=== PATIENT | female | born 1985 | race Caucasian/White ===

== ENCOUNTER → 2016-05-31 | Outpatient (CLI) | payer OTHER ==
[~2016-05-31] MED LIST: LEVO100T7 PO; LEVO50TA6 PO
[2016-05-31 11:02] LABS: THYROID STIMULATING HORMONE 1.7 uIu/ml (0.300-4.500)
== END | disposition home or self-care (01) ==
LOC: C.LAB1850 09:14
PROVIDERS: ATTEND Internal Medicine Endocrinology, Diabetes & Metabolism
DX: E03.9 Hypothyroidism, unspecified (principal)

== ENCOUNTER → 2016-08-18 | Outpatient (CLI) | payer OTHER ==
--- NOTE | 2016-08-18 11:32 | DIAGNOSTIC IMAGING REPORT ---
HYSTEROSALPINGOGRAM HISTORY: Infertility. FLUOROSCOPY TIME: 0.4 minutes. 2 images. TECHNIQUE: The cervix was cannulated by the measurement department chief clerk-wildlife biology internship and water soluble contrast was instilled into the uterus under fluoroscopic guidance. Multiple spot images were obtained. FINDINGS: The uterine cavity is normal in size, shape, and position. The fallopian tubes are patent and there is free peritoneal spill on the right. No definite left-sided intraperitoneal spill of contrast. This is likely due to the preferential flow on the right. However, the left fallopian tube appears to be normal.. IMPRESSION: Essentially normal hysterosalpingogram. No definite left-sided intraperitoneal spill of contrast which is likely due to preferential flow of contrast to the right. The patient was unable to tolerate additional contrast injection. The fallopian tubes are normal. Electronically signed by: Marcus Marie M.D. 08/18/2016 11:30 AM Dictated Date/Time: 08/18/2016 11:29 AM
--- NOTE | 2016-08-18 19:28 | OPERATIVE REPORT ---
DATE OF OPERATION: 08/18/2016 Stormy presented for hystersalpingogram. She is a patient of Dr. Issa for primary infertility. PREOPERATIVE DIAGNOSIS: Primary infertility. POSTOPERATIVE DIAGNOSIS: Primary infertility. PROCEDURE: Hysterosalpingogram. SURGEON: Dr. Metcalf. RADIOLOGY: Dr. Marie. ESTIMATED BLOOD LOSS: Zero. SPECIMENS: None. ANESTHETICS: None. FINDINGS: Normal uterus, patent right fallopian tube, no abnormalities seen on the left tube, but no spill from the left tube. DESCRIPTION OF PROCEDURE: The procedure was discussed. The patient was placed in lithotomy position. A Graves' speculum placed in the vagina. Cervix was cleaned with Betadine. Cervix was somewhat off to the patient's right vaginal side but was visualized, grasped with a single tooth tenaculum and then acorn injecting device with the radiopaque dye was attached to her cervix. Patient was then positioned. Dye was injected. The uterus appeared normal. There was spill on the right fallopian tube noticed instantly. The left tube appeared normal, but there was not spill. Due to the patient having discomfort with the procedure we procedure without further advancing dye. Instruments removed from the cervix and vagina. Bleeding was minimal at the end of procedure. I attest to the content of the Intraoperative Record and any orders documented therein. Any exceptio ns are noted below.
== END | disposition home or self-care (01) ==
LOC: C.RAD 10:09
PROVIDERS: ATTEND Obstetrics & Gynecology
DX: Z31.41 Encounter for fertility testing (principal)

== ENCOUNTER → 2016-09-21 | Outpatient (CLI) | payer OTHER ==
[2016-09-21 10:15] LABS: THYROID STIMULATING HORMONE 1.87 uIu/ml (0.300-4.500)
== END | disposition home or self-care (01) ==
LOC: C.LAB1850 08:05
PROVIDERS: ATTEND Physician Assistant
DX: E03.9 Hypothyroidism, unspecified (principal)

== ENCOUNTER → 2016-09-30 | Outpatient (CLI) | payer OTHER ==
[2016-09-30 14:07] LABS: URINE APPEARANCE CLEAR (CLEAR); URINE BILIRUBIN NEG (NEG); URINE COLOR YELLOW; URINE NITRITE NEG (NEG); URINE SPECIFIC GRAVITY 1.014 (1.000-1.030); UROBILINOGEN NEG (NEG)
[2016-09-30 14:22] LABS: MANUAL MICROSCOPIC REQUIRED? NO; REVIEW REQ? NO
== END | disposition home or self-care (01) ==
LOC: C.LABSPEC 13:26
PROVIDERS: ATTEND Obstetrics & Gynecology
DX: O09.01 Supervision of pregnancy with history of infertility, first trimester (principal); Z3A.00 Weeks of gestation of pregnancy not specified

== ENCOUNTER → 2016-10-11 | Outpatient (CLI) | payer OTHER ==
[2016-10-11 12:41] LABS: BASO % 0.6 %; BASO ABS # 0.04 K/uL (0-0.2); COMPLETE YES; HEMATOCRIT 38.3 % (37-47); IG% 0.4 %; LYMPH % 35.9 %; LYMPH ABS # 2.44 K/uL (1.2-3.4); MEAN CORPUSCULAR HEMOGLOBIN 30.6 pg (25-34); MEAN CORPUSCULAR HGB CONC 34.7 g/dl (32-36); MEAN PLATELET VOLUME 9.8 fL (7.4-10.4); MONO % 10.3 %; NEUT % 51.8 %; PLATELET COUNT 288 K/uL (130-400); RED BLOOD COUNT 4.35 M/uL (4.2-5.4); WHITE BLOOD COUNT 6.79 K/uL (4.8-10.8)
== END | disposition home or self-care (01) ==
LOC: C.LAB1850 09:45
PROVIDERS: ATTEND Obstetrics & Gynecology
DX: O09.01 Supervision of pregnancy with history of infertility, first trimester (principal)

== ENCOUNTER 2016-10-12 11:22 | Day surgery (SDC) | payer OTHER ==
[~2016-10-12] VITALS: Ht 149.9 cm; Wt 51.8 kg
[~2016-10-12 11:22] MED LIST changes: +DOXYCYCLINE HYCLATE 100 MG CAP PO SCH; +LACTATED RINGER'S 1000ML 1,000 ML IV SCH; -LEVO100T7 PO; -LEVO50TA6 PO; +PATIENT'S ALLERGY INFO NEEDS ENTERED SCH
[2016-10-12 11:34] VITALS: BP 87/57; PULSE 73; O2SAT 100; Ht 149.9 cm; Wt 51.8 kg
[2016-10-12] MEDS ORDERED: DEXAMETHASONE SOD INJ 4 MG/ML VIAL ONE ×2 (11:51→12:35)
[2016-10-12] MEDS ORDERED: LIDOCAINE HCL 2% 2 ML VIAL (20MG/ML) ONE (11:51)
[2016-10-12] MEDS ORDERED: PROPOFOL IV EMULSION 10 MG/ML 20 ML VIAL IV ONE (11:51)
[2016-10-12] MEDS ORDERED: ONDANSETRON INJ 2 MG/ML 2 ML VIAL ONE (11:51)
[2016-10-12] MEDS ORDERED: MIDAZOLAM HCL 1 MG/ML 2ML VIAL ONE (11:51)
[2016-10-12] MEDS ORDERED: FENTANYL CITRATE INJ 50 MCG/1 ML 2 ML VIAL ONE (11:52)
[2016-10-12] MEDS ORDERED: SODIUM CHLORIDE 0.9% 1000ML 1,000 ML IV SCH (11:58)
--- NOTE | 2016-10-12 11:58 | History & Physical Bridge Note ---
H&P Re-Evaluation Bridge Note: I have examined the patient, reviewed the History & Physical and in the interval since the performance of the History & Physical I have noted the following changes of clinical significance: No changes noted
--- NOTE | 2016-10-12 11:59 | Discharge Instructions ---
Discharge Instructions Date of Service Oct 12, 2016. Visit Reason for Visit: Missed Discharge Discharge Diagnosis / Problem: Dilation and evacuation for MAB Discharge Goals Goal(s): Specific goals Activity Recommendations Activity Limitations: per Instructions/Follow-up section Anesthesia . Post Anesthesia Instructions: If you have had General Anesthesia or IV Sedation: * Do not drive today. * Resume driving when surgeon permits. * Do not make important decisions or sign legal documents today. * Call surgeon for: 1. Temperature elevations greater than 101 degrees F. 2. Uncontrollable pain. 3. Excessive bleeding. 4. Persistent nausea and vomiting. 5. Medication intolerance (nausea, vomiting or rash). * For nausea and vomiting use only clear liquids such as: tea, soda, bouillon until nausea subsides, then gradually increase diet as tolerated. * If you have any concerns or questions, call your surgeon's office. If physician is unavailable and it is an emergency, call 911 or go to the nearest emergency room. . Instructions / Follow-Up Instructions / Follow-Up ACTIVITY RECOMMENDATIONS: * Avoid tampons, douching, hot tubs, pools, and intercourse until bleeding has stopped. * May shower as usual. * No strenuous activity for 24-48 hours. After 24-48 hours, you may do anything you feel like doing (driving and sports are okay). SPECIAL CARE INSTRUCTIONS: Special Diet: * Mild nausea may occur in the immediate post-operative period. * Take clear liquids such as tea, cola or bouillon until all nausea has subsided; you may then resume your normal diet. Special Care: * Light bleeding and vaginal spotting can last from a few days to 3-4 weeks. Call your doctor if bleeding becomes heavier than the heaviest part of your period. * Check your temperature twice a day for one week. If it goes above 100.4 degrees Fahrenheit (38.0 Celsius), notify your doctor. * Call your doctor's office for an appointment for 6 weeks after your surgery. FOLLOW-UP VISIT: Call your doctor's office for an appointment for 6 weeks after your surgery. Diet Recommendations Recommended Home Diet: resume previous diet Pending Studies Studies pending at discharge: no Medical Emergencies . Who to Call and When: Medical Emergencies: If at any time you feel your situation is an emergency, please call 911 immediately. . Non-Emergent Contact Non-Emergency issues call your: Primary Care Provider . . "Provider Documentation" section prepared by Daly Guzmán. .
[2016-10-12] MEDS ORDERED: OXYCODONE/ACETAMINOPHEN 5-325 TAB PO PRN ×2 (12:00)
[2016-10-12] MEDS ORDERED: KETOROLAC TROMETHAMINE 30 MG/ML VIAL IV. PRN ×2 (12:00→12:45)
[2016-10-12] MEDS ORDERED: ONDANSETRON INJ 2 MG/ML 2 ML VIAL IV PRN ×2 (12:00→12:45)
[2016-10-12] MEDS ORDERED: PROMETHAZINE HCL INJ 25 MG in SODIUM CHLORIDE 0.9% 50ML 50 ML IV PRN (12:00)
[2016-10-12] MEDS ORDERED: IBUPROFEN 600 MG TAB PO PRN (12:00)
[2016-10-12] MEDS ORDERED: LEVO100T7 PO (12:09)
[2016-10-12] MEDS ORDERED: LEVO50TA6 PO (12:09)
[2016-10-12] MEDS ORDERED: METOCLOPRAMIDE HCL INJ 5 MG/ML 2 ML VIAL ONE (12:35)
[2016-10-12] MEDS ORDERED: KETOROLAC TROMETHAMINE 30 MG/ML VIAL ONE (12:44)
[2016-10-12] MEDS ORDERED: FENTANYL CITRATE INJ 50 MCG/1 ML 2 ML VIAL IV PRN (12:45)
[2016-10-12] MEDS ORDERED: ATROPINE SULFATE 0.1 MG/ML 5ML SYR IV PRN (12:45)
[2016-10-12] MEDS ORDERED: PROMETHAZINE HCL INJ 12.5 MG in SODIUM CHLORIDE 0.9% 50ML 50 ML IV PRN (12:45)
--- NOTE | 2016-10-12 13:21 | Anesthesiology Progress Note ---
Anesthesia Post Op Note Date & Time Oct 12, 2016 at 13:20 Vital Signs Pain Intensity: 0 Vital Signs Past 12 Hours Date Time Temp Pulse Resp B/P (MAP) Pulse Ox O2 Delivery O2 Flow Rate FiO2 10/12/16 13:15 53 17 96/66 (73) 98 Room Air 10/12/16 13:05 56 19 88/53 (57) 100 Mask 10 10/12/16 12:55 55 19 92/67 (77) 100 Mask 10 10/12/16 12:49 36.3 60 16 98/58 100 Mask 10 10/12/16 11:34 73 18 87/57 (67) 100 Room Air Notes Mental Status: alert / awake / arousable, participated in evaluation Pt Amnestic to Procedure: Yes Nausea / Vomiting: adequately controlled Pain: adequately controlled Airway Patency, RR, SpO2: stable & adequate BP & HR: stable & adequate Hydration State: stable & adequate Anesthetic Complications: no major complications apparent
[2016-10-12] MEDS ORDERED: DOXYCYCLINE HYCLATE 100 MG CAP PO SCH (14:00)
[2016-10-12 14:05] VITALS: BP 95/50; PULSE 85; O2SAT 99
[2016-10-12 14:12] VITALS: BP 88/57; PULSE 56; TEMP 36.3; O2SAT 98
[2016-10-15] MEDS ORDERED: DOXYCYCLINE HYCLATE 100 MG CAP PO SCH (06:00)
[2016-10-15] MEDS ORDERED: LACTATED RINGER'S 1000ML 1,000 ML IV SCH (06:00)
--- NOTE | 2016-10-21 08:17 | OPERATIVE REPORT ---
DATE OF OPERATION: 10/12/2016 PREOPERATIVE DIAGNOSIS: Missed . POSTOPERATIVE DIAGNOSIS: Same. PROCEDURE: D&E. SURGEON: Dr. Guzmán. DENTAL BILLER: None. ESTIMATED BLOOD LOSS: 100 mL. FINDINGS: Uterus 12 cm at the beginning of procedure, 8 at the end, POC retrieved. SPECIMENS: POC. COMPLICATIONS: None. DISPOSITION: Stable to recovery room. OPERATION AND FINDINGS: DESCRIPTION: Stormy was placed on the table in the dorsal lithotomy position with candy-cane stirrups, prepped and draped in standard sterile fashion and a hard time-out was taken prior to proceeding. The bladder was catheterized for less than 100 mL of clear yellow urine. A weighted speculum was then introduced to the vagina and the anterior lip of the cervix was identified and grasped with a single-tooth tenaculum. The uterus was sounded to 12 cm and then the cervix was serially dilated to allow passage of an 8 mm suction curette. This was then introduced to the fundus, hoses were then attached and then suction was applied through 3 passes, material consistent with POC was retrieved. Once this was completed, the suction curette was removed and a brief sharp curettage was carried out on all liu to ensure good cry. One final suction pass was then made to retrieve any loose clot and debris. All instruments were then removed. Allis was briefly applied to the patient's left side tenaculum site for a little bit of bleeding. After about a minute this was removed and the area was hemostatic. All instruments having been removed the patient was then transferred to the recovery room in stable condition. I attest to the content of the Intraoperative Record and any orders documented therein. Any exception s are noted below.
== END 2016-10-12 14:40 | disposition home or self-care (01) ==
LOC: C.ACU 11:22
PROVIDERS: ATTEND Obstetrics & Gynecology
DX: O02.1 Missed abortion (principal); Z82.49 Family history of ischemic heart disease and other diseases of the circulatory system; Z80.3 Family history of malignant neoplasm of breast

== ENCOUNTER → 2016-11-02 | Outpatient (CLI) | payer OTHER ==
[~2016-11-02] MED LIST changes: -DOXYCYCLINE HYCLATE 100 MG CAP PO SCH; -LACTATED RINGER'S 1000ML 1,000 ML IV SCH; +LEVO100T7 PO; +LEVO50TA6 PO; -PATIENT'S ALLERGY INFO NEEDS ENTERED SCH
[2016-11-02 17:21] LABS: BASO % 0.6 %; BASO ABS # 0.04 K/uL (0-0.2); COMPLETE YES; EOS % 1.5 %; HEMATOCRIT 39.8 % (37-47); IG% 0.1 %; LYMPH % 42.2 %; LYMPH ABS # 3.03 K/uL (1.2-3.4); MEAN CELL VOLUME 88.4 fL (80-100); MEAN CORPUSCULAR HEMOGLOBIN 29.1 pg (25-34); MEAN CORPUSCULAR HGB CONC 32.9 g/dl (32-36); MEAN PLATELET VOLUME 9.6 fL (7.4-10.4); MONO % 6.5 %; NEUT % 49.1 %; PLATELET COUNT 319 K/uL (130-400); WHITE BLOOD COUNT 7.18 K/uL (4.8-10.8)
[2016-11-02 17:25] LABS: ALT/SGPT 20 U/L (12-78); BLOOD UREA NITROGEN 10 mg/dl (7-18); BUN/CREATININE RATIO 13.8 (10-20); CALCIUM 9.3 mg/dl (8.5-10.1); CARBON DIOXIDE 27 mmol/L (21-32); CHLORIDE 106 mmol/L (98-107); CREATININE 0.73 mg/dl (0.60-1.20); GLUCOSE 90 mg/dl (70-99); SODIUM 140 mmol/L (136-145)
[2016-11-02 17:36] LABS: ALB/GLOB RATIO 0.9 (0.9-2); ALKALINE PHOSPHATASE 41 U/L (45-117); AST/SGOT 15 U/L (15-37)
== END | disposition home or self-care (01) ==
LOC: C.LABBC 12:51
PROVIDERS: ATTEND Internal Medicine
DX: R79.9 Abnormal finding of blood chemistry, unspecified (principal); M79.1 Myalgia; R53.83 Other fatigue

== ENCOUNTER → 2016-12-28 | Outpatient (CLI) | payer OTHER ==
[2016-12-28 14:43] LABS: THYROID STIMULATING HORMONE 2.37 uIu/ml (0.300-4.500)
== END | disposition home or self-care (01) ==
LOC: C.LAB1850 12:40
PROVIDERS: ATTEND Obstetrics & Gynecology
DX: O09.299 Supervision of pregnancy with other poor reproductive or obstetric history, unspecified trimester (principal); O99.280 Endocrine, nutritional and metabolic diseases complicating pregnancy, unspecified trimester; E03.9 Hypothyroidism, unspecified

== ENCOUNTER → 2016-12-30 | Outpatient (CLI) | payer OTHER | END | disposition home or self-care (01) | LOC: C.LABBC 14:39 | PROVIDERS: ATTEND Obstetrics & Gynecology | DX: O09.299 Supervision of pregnancy with other poor reproductive or obstetric history, unspecified trimester (principal) ==

== ENCOUNTER → 2017-01-20 | Outpatient (CLI) | payer OTHER ==
[2017-01-20 16:12] LABS: URINE APPEARANCE CLEAR (CLEAR); URINE BILIRUBIN NEG (NEG); URINE COLOR YELLOW; URINE NITRITE NEG (NEG); URINE SPECIFIC GRAVITY 1.017 (1.000-1.030); UROBILINOGEN NEG (NEG)
[2017-01-20 16:18] LABS: MANUAL MICROSCOPIC REQUIRED? NO; REVIEW REQ? NO
[2017-01-20 16:25] LABS: BASO % 0.2 %; BASO ABS # 0.02 K/uL (0-0.2); COMPLETE YES; EOS % 0.4 %; HEMATOCRIT 37.8 % (37-47); IG% 0.3 %; LYMPH % 28.3 %; LYMPH ABS # 2.78 K/uL (1.2-3.4); MEAN CELL VOLUME 87.5 fL (80-100); MEAN CORPUSCULAR HEMOGLOBIN 30.1 pg (25-34); MEAN CORPUSCULAR HGB CONC 34.4 g/dl (32-36); MEAN PLATELET VOLUME 9.6 fL (7.4-10.4); NEUT % 61.8 %; PLATELET COUNT 307 K/uL (130-400); RED BLOOD COUNT 4.32 M/uL (4.2-5.4); WHITE BLOOD COUNT 9.83 K/uL (4.8-10.8)
[2017-01-24 08:43] LABS: CHLAMYDIA TRACH RNA*** NOT DETECTED (NOT DETECTED); GC (NEIS GONORRHOEAE)RNA** NOT DETECTED (NOT DETECTED)
== END | disposition home or self-care (01) ==
LOC: C.LAB1850 14:55
PROVIDERS: ATTEND Obstetrics & Gynecology
DX: O09.01 Supervision of pregnancy with history of infertility, first trimester (principal); Z3A.00 Weeks of gestation of pregnancy not specified

== ENCOUNTER → 2017-02-15 | Outpatient (CLI) | payer OTHER ==
[2017-02-15 15:57] LABS: THYROID STIMULATING HORMONE 1.06 uIu/ml (0.300-4.500)
== END | disposition home or self-care (01) ==
LOC: C.LAB1850 13:47
PROVIDERS: ATTEND Obstetrics & Gynecology
DX: O99.280 Endocrine, nutritional and metabolic diseases complicating pregnancy, unspecified trimester (principal)

== ENCOUNTER → 2017-03-29 | Outpatient (CLI) | payer OTHER ==
[2017-03-29 18:00] LABS: THYROID STIMULATING HORMONE 1.38 uIu/ml (0.300-4.500)
[2017-03-29 18:03] LABS: GTGD 50 Grams
[2017-04-01 13:59] LABS: AFP CONCENTRATION 44.6 NG/ML; AFP MULTIPLE OF MEDIAN 1.01; AFPTS INSULIN DEP DIABETIC? NO; AFPTS MATERNAL WT 117 LBS; ALPHA-FETOPROTEIN RACE OTHER=O; CIGARETTE SMOKER? NOT PROVIDED; EDD DETERMINED BY ULTRASOUND; HISTORY OF NTD NO; REPEAT SAMPLE? NO
== END | disposition home or self-care (01) ==
LOC: C.LAB1850 16:08
PROVIDERS: ATTEND Obstetrics & Gynecology
DX: E55.9 Vitamin D deficiency, unspecified (principal); O99.280 Endocrine, nutritional and metabolic diseases complicating pregnancy, unspecified trimester; Z3A.00 Weeks of gestation of pregnancy not specified; O09.02 Supervision of pregnancy with history of infertility, second trimester

== ENCOUNTER → 2017-04-26 | Outpatient (CLI) | payer OTHER ==
[2017-04-26 17:12] LABS: THYROID STIMULATING HORMONE 1.48 uIu/ml (0.300-4.500)
== END | disposition home or self-care (01) ==
LOC: C.LAB1850 15:47
PROVIDERS: ATTEND Internal Medicine Endocrinology, Diabetes & Metabolism
DX: O99.280 Endocrine, nutritional and metabolic diseases complicating pregnancy, unspecified trimester (principal)

== ENCOUNTER → 2017-06-16 | Outpatient (CLI) | payer OTHER | END | disposition home or self-care (01) | LOC: C.LABSPEC 18:00 | PROVIDERS: ATTEND Obstetrics & Gynecology | DX: O09.03 Supervision of pregnancy with history of infertility, third trimester (principal); Z3A.00 Weeks of gestation of pregnancy not specified ==

== ENCOUNTER → 2017-06-21 | Outpatient (CLI) | payer OTHER ==
[2017-06-21 14:39] LABS: HEMATOCRIT 34.5 % (37-47); HEMOGLOBIN 11.7 g/dL (12.0-16.0)
== END | disposition home or self-care (01) ==
LOC: C.LAB1850 11:31
PROVIDERS: ATTEND Obstetrics & Gynecology
DX: O09.03 Supervision of pregnancy with history of infertility, third trimester (principal); Z3A.00 Weeks of gestation of pregnancy not specified

== ENCOUNTER → 2017-07-14 | Outpatient (CLI) | payer OTHER | END | disposition home or self-care (01) | LOC: C.LAB1850 16:57 | PROVIDERS: ATTEND Internal Medicine Endocrinology, Diabetes & Metabolism | DX: E55.9 Vitamin D deficiency, unspecified (principal) ==

== ENCOUNTER → 2017-08-11 | Outpatient (CLI) | payer OTHER | END | disposition home or self-care (01) | LOC: C.LABSPEC 17:45 | PROVIDERS: ATTEND Obstetrics & Gynecology | DX: O09.03 Supervision of pregnancy with history of infertility, third trimester (principal); Z3A.00 Weeks of gestation of pregnancy not specified ==

== ENCOUNTER 2017-09-01 17:07 | Outpatient (CLI) | payer OTHER ==
[2017-09-08] MEDS ORDERED: MTR600X PO (06:49)
[2017-09-08] MEDS ORDERED: OXYC-57 PO (06:49)
--- NOTE | 2017-09-08 10:09 | EDITING REQUIRED CODING QUERY ---
DIAGNOSIS NEEDED To promote full compliance with coding requirements relating to patient care, physician participation is requested in all cases of inbound ingredient logistics specialist uncertainty. Please assist us with the question(s) below: Coding Question: The patient received care in labor and delivery on 09/02/17 as noted within the record. Please document the diagnosis that is being addressed by the medication/treatment. Provider Response: DIAGNOSIS: Labor check 40 weeks WEEKS OF GESTATION: Thank you for your assistance, Scarlett Sun - Remote Mortgage Underwriter
== END 2017-09-01 17:47 | disposition home or self-care (01) ==
LOC: C.LD 17:07 → C.OPB 17:07
PROVIDERS: ATTEND Obstetrics & Gynecology
DX: Z34.83 Encounter for supervision of other normal pregnancy, third trimester (principal)

== ENCOUNTER 2017-09-04 23:54 | Inpatient (IN) | payer OTHER ==
[~2017-09-04] VITALS: Ht 149.9 cm; Wt 67.0 kg
[2017-09-05] VITALS (18 sets, daily range): BP systolic 102–110; BP diastolic 65–71; PULSE 78–101; TEMP 36.6–36.9; O2SAT 94–100; Ht 149.9 cm; Wt 67.0 kg
[2017-09-05] MEDS ORDERED: PRENTAB26 PO (00:17)
[2017-09-05] MEDS ORDERED: LACTATED RINGER'S 1000ML 1,000 ML IV SCH (03:39)
[2017-09-05] MEDS ORDERED: BUTORPHANOL TARTRATE 1 MG/ML VIAL ONE (04:06)
[2017-09-05 04:12] LABS: HEMATOCRIT 35.3 % (37-47); HEMOGLOBIN 12.5 g/dL (12.0-16.0); MEAN CELL VOLUME 88.9 fL (80-100); MEAN CORPUSCULAR HEMOGLOBIN 31.5 pg (25-34); MEAN PLATELET VOLUME 9.6 fL (7.4-10.4); PLATELET COUNT 217 K/uL (130-400); RED CELL DISTRIBUTION WIDTH CV 13.4 % (11.5-14.5); WHITE BLOOD COUNT 16.09 K/uL (4.8-10.8)
[2017-09-05 04:13] LABS: MEAN CORPUSCULAR HGB CONC 35.4 g/dl (32-36)
[2017-09-05] MEDS ORDERED: BUTORPHANOL TARTRATE 1 MG/ML VIAL IV PRN (04:15)
[2017-09-05] MEDS ORDERED: BUPIVACAINE 0.25% 30 ML VIAL ONE (04:18)
[2017-09-05] MEDS ORDERED: EpHEDrine SULFATE INJ 50 MG/ML AMP ONE (04:18)
[2017-09-05] MEDS ORDERED: FENTANYL CITRATE INJ 50 MCG/1 ML 2 ML VIAL ONE (04:18)
[2017-09-05] MEDS ORDERED: FENTANYL 2MCG/ML ROPIV 1.25MG/ML 100ML BAG ONE (04:19)
[2017-09-05] MEDS ORDERED: NALOXONE HCL INJ 1 MG in SODIUM CHLORIDE 0.9% 1000ML 1,000 ML IV PRN ×2 (04:58→06:29)
[2017-09-05] MEDS ORDERED: LACTATED RINGER'S 1000ML 500 ML IV PRN ×2 (04:58→06:29)
[2017-09-05] MEDS ORDERED: EpHEDrine SULFATE INJ 50 MG/ML AMP IV PRN ×2 (05:00→06:30)
[2017-09-05] MEDS ORDERED: NALBUPHINE HCL INJ 10 MG/ML AMP IV PRN ×2 (05:00→06:30)
[2017-09-05] MEDS ORDERED: DiphenhydrAMINE HCL 50 MG/ML VIAL IV PRN ×3 (05:00→23:50)
[2017-09-05] MEDS ORDERED: NALOXONE HCL INJ 0.4 MG/1 ML VIAL/CARP IV PRN (05:00)
[2017-09-05] MEDS ORDERED: FENTANYL 2MCG/ML ROPIV 1.25MG/ML 100ML BAG EPI PRN (05:00)
[2017-09-05] MEDS ORDERED: ONDANSETRON INJ 2 MG/ML 2 ML VIAL IV PRN ×3 (05:00→23:50)
[2017-09-05] MEDS: LACTATED RINGER'S 1000ML 1,000 ML IV SCH ×2 (05:06→17:20)
[2017-09-05] MEDS ORDERED: LIDOCAINE/EPINEPHRINE 2% 1:200,000 20 ML SDV ONE (05:39)
[2017-09-05] MEDS ORDERED: ONDANSETRON INJ 2 MG/ML 2 ML VIAL ONE (05:39)
[2017-09-05] MEDS ORDERED: OXYTOCIN INJ 10 UNITS/ML VIAL ONE ×3 (05:40→05:47)
[2017-09-05] MEDS ORDERED: PHENYLEPHRINE HCL INJ 10 MG/ML VIAL ONE (05:40)
[2017-09-05] MEDS ORDERED: MoRPHine SULFATE PF 1 MG/ML 10 ML AMP/VIAL ONE (05:44)
--- NOTE | 2017-09-05 06:02 | [facility] Post Operative Brief Note ---
Immediate Operative Summary Operative Date Sep 05, 2017. Pre-Operative Diagnosis 1. 39 week intrauterine 2. early labor 3. bradycardia Post-Operative Diagnosis same Procedure(s) Performed Stat Primary LTCS Surgeon Chris Corn Husk Baler Surgeon(s) RN Estimated Blood Loss 500 Findings See Below (viable male apgars 8,9. normal uterus, tubes and ovaries bilaterally. baby with nuchal cord and body cord. ) see below Fluids (cc crystalloids) 1500 Specimens placenta, cord gases Drains patel Anesthesia Type L&D Only EPID Exist Complication(s) none Disposition Accompanied Pt To Recover: no Disposition: L&D
[2017-09-05] MEDS ORDERED: LANOLIN OINT EXT PRN (06:15)
[2017-09-05] MEDS ORDERED: SUPERCREAM 0.870 % 15GM JAR EXT PRN (06:15)
[2017-09-05] MEDS ORDERED: HYDROCORTISONE ACETATE 25 MG SUPP PR PRN (06:15)
[2017-09-05] MEDS ORDERED: BENZOCAINE 20% AER SPR 82.5 GM CAN EXT PRN (06:15)
[2017-09-05] MEDS ORDERED: DIPHTHERIA/TETANUS/PERTUSSIS 0.5 ML SYR/VIAL IM. ONE (06:15)
--- NOTE | 2017-09-05 06:26 | Anesthesia Procedure Note ---
Anesthesia Epidural Removal Nt Date & Time Sep 05, 2017 at 06:25 Vital Signs Pain Intensity: 0.0 Notes Mental Status: alert / awake / arousable, participated in evaluation Nausea / Vomiting: adequately controlled Pain: adequately controlled Airway Patency, RR, SpO2: stable & adequate BP & HR: stable & adequate Hydration State: stable & adequate Neuraxial Anesthesia: was administered, sensory block is resolving Anesthetic Complications: no major complications apparent, pt satisfied with anesthetic care Epidural: removed without complications, with tip intact
--- NOTE | 2017-09-05 06:26 | Anesthesiology Progress Note ---
Anesthesia Post Op Note Date & Time Sep 05, 2017 at 06:26 Vital Signs Pain Intensity: 0.0 Notes Mental Status: alert / awake / arousable, participated in evaluation Pt Amnestic to Procedure: Yes Nausea / Vomiting: adequately controlled Pain: adequately controlled Airway Patency, RR, SpO2: stable & adequate BP & HR: stable & adequate Hydration State: stable & adequate Neuraxial Anesthesia: was administered, sensory block is resolving Anesthetic Complications: no major complications apparent
[2017-09-05] MEDS ORDERED: SODIUM CHLORIDE 0.9% 1000ML 1,000 ML IV PRN (06:29)
[2017-09-05] MEDS ORDERED: NALOXONE HCL INJ 0.08 MG in SYRINGE 1.8 ML IV PRN (06:29)
[2017-09-05] MEDS ORDERED: NALOXONE HCL 0.4 MG/1 ML VIAL/CARP IV PRN (06:30)
[2017-09-05] MEDS ORDERED: MoRPHine SULFATE PF 1 MG/ML 10 ML AMP/VIAL EPI PRN (06:30)
[2017-09-05] MEDS ORDERED: MoRPHine SULFATE 2 MG/ML CARP IV PRN (06:30)
[2017-09-05] MEDS ORDERED: NO NARCOTICS OR SEDATIVES SCH (06:30)
[2017-09-05] MEDS ORDERED: TERBUTALINE SULFATE 1 MG/ML VIAL SQ ONE (06:45)
[2017-09-05] MEDS ORDERED: CARBOPROST TROMETHAMINE 250 MCG/ML AMP IM ONE (06:45)
[2017-09-05] MEDS ORDERED: CEFAZOLIN IV 2,000 MG in DEXTROSE 5% 50ML 50 ML IV SCH (06:45)
--- NOTE | 2017-09-05 06:46 | DIAGNOSTIC IMAGING REPORT ---
KUB HISTORY: Acute pelvic pain status post STAT ; NO COUNT COMPARISON: None. FINDINGS: The bowel gas pattern is non-obstructive. A single wire is noted projected over the lumbar spine coiled at the level of L4. There is no organomegaly. No renal calculi. No ureteral calculi. No gross pneumoperitoneum identified on this supine view. No definite retained foreign body identified. No pneumatosis.. No fracture. IMPRESSION: Nonobstructive bowel gas pattern. Electronically signed by: Jim Sylvester M.D. 09/05/2017 6:44 AM Dictated Date/Time: 09/05/2017 6:42 AM
[2017-09-05] MEDS ORDERED: OXYTOCIN INJ 20 UNITS in LACTATED RINGER'S 1000ML 1,000 ML IV SCH (07:00)
--- NOTE | 2017-09-05 07:34 | OPERATIVE REPORT ---
DATE OF OPERATION: 09/05/2017 PREOPERATIVE DIAGNOSES: 1. A 39+ week intrauterine . 2. Early labor. 3. bradycardia. 4. Meconium-stained amniotic fluid. POSTOPERATIVE DIAGNOSES: Same. PROCEDURE: Stat low-transverse section. SURGEON: Dr. Ghazal Perez. CARDIAC CATHETERIZATION TECHNICIAN: RN. IV FLUIDS: 1500 mL. ESTIMATED BLOOD LOSS: 500 mL. URINE OUTPUT: 350 mL. ANESTHESIA: Epidural with Duramorph, local 2% lidocaine. INDICATIONS: A 31-year-old 2, para 0-0-1-0 at 39-6/7 weeks who presented to labor and delivery with early labor. She ultimately dilated to 3-4 cm and was admitted. She received an epidural and subsequently her water broke with evidence of thick meconium-stained fluid. Shortly thereafter, this was followed by an episode of bradycardia for at least 16 minutes that was traced. She had IV fluid bolusing, oxygen, and position change without recovery. Decision was made to proceed with stat section. Her vaginal exam was 5 cm. FINDINGS: Viable male infant, Apgars 8 and 9. Cord gases obtained. Placenta sent for pathology. Normal uterus, tubes and ovaries bilaterally. with nuchal and body cord. DESCRIPTION OF PROCEDURE: scalp electrode had been placed in the room. It was quickly removed. The patient was placed supine on the table. There was no time for adequate prep and Betadine was poured. She was rapidly draped. Her anesthesia level from her recent epidural was inadequate due to her sensation of pricking at the site of the planned incision. For that reason, 2% local lidocaine was injected along the planned site of the incision. The knife was then used to create a Pfannenstiel skin incision that was then carried down to the underlying layer of fascia. The fascia had been nicked in the midline. It was extended manually. The rectus muscles were dissected off of the fascia bluntly. The peritoneal cavity was bluntly entered into. This opening was stretched. The bladder blade was placed. The knife was used to create a hysterotomy that was then stretched. The feather drying machine operator's hand was placed through the hysterotomy and the head was elevated. The bladder blade was removed. With fundal pressure, the cephalic was delivered. The shoulders and body were then rapidly delivered with further fundal pressure. A nuchal cord as well as a body cord had been noted. The immediately cried. The nose and mouth were bulb suctioned. The cord was clamped and cut, and the was handed off to the awaiting nursing staff. Cord gases were obtained. Placenta was manually expressed. The uterus was exteriorized and cleared of all clots and debris. The uterus was boggy despite IV Pitocin, and therefore, after the blood pressure was checked, IM Hemabate 0.25 mg was administered on the field into the uterine muscle. The hysterotomy was closed in a running locking fashion using 0 Vicryl. A second imbricating layer of 0 Vicryl was placed for excellent hemostasis. The uterine tone was improving. The pelvis was irrigated. The uterus was returned to the abdomen. The gutters were cleared of all clots and debris. Hysterotomy was reinspected and noted to be hemostatic. The fascia was reapproximated in a running fashion using 0 Vicryl. The subcutaneous tissue was copiously irrigated. It was reapproximated using 3-0 chromic. The skin was then closed in a subcuticular fashion using 4-0 Vicryl. There had been no sponge, lap or needle count, and therefore, an x-ray was performed with the preliminary findings of no retained sponges or sutures. The patient was transferred to the labor and delivery recovery room. I attest to the content of the Intraoperative Record and any orders documented therein. Any exceptions are noted below. [facility]
--- NOTE | 2017-09-05 07:51 | Discharge Instructions ---
Discharge Instructions Date of Service Sep 05, 2017. Admission Reason for Admission: LABOR Discharge Discharge Diagnosis / Problem: Discharge Goals Goal(s): Routine recovery after Medications Continue Dispensed Medications: supercream, dermaplast, tucks, lansinoh Activity Recommendations Activity Limitations: per Instructions/Follow-up section . Instructions / Follow-Up Instructions / Follow-Up ACTIVITY RECOMMENDATIONS: * Gradual return to full activity over the next 2-3 weeks. * No lifting - nothing heavier than baby over the next 2-3 weeks. * Do not engage in vigorous exercise, sexual activity or sports until cleared by your physician. * Do not drive or operate any motorized equipment until cleared by your physician. * You may shower/bathe daily. MEDICATIONS: For discomfort or pain, you may use Acetaminophen (Tylenol), Ibuprofen (Advil), or Naproxen (Aleve) following the package directions. For constipation you may use Colace following the package directions. BREAST CARE: If you are not breast feeding: * Wear a supportive bra 24 hours a day for one to two weeks. * Avoid stimulating your breasts and nipples as much as possible during the first few weeks after delivery. * When taking a shower, have the warm water hit your back, not breasts. * When your breasts feel full, apply ice packs. Usually three to four times a day helps ease the discomfort. * Take a mild pain medication (Tylenol / Motrin) when you are uncomfortable. If breast feeding: * Use breast milk to lubricate nipples. Lansinoh cream may be used for sore nipples. You do not need to remove cream prior to breast feeding. If using a different brand of cream, check the label for directions regarding removal of cream prior to nursing. * Wear a supportive bra. * If having problems with breasts or breast feeding, call a oracle application consultant or your health care provider. SPECIAL CARE INSTRUCTIONS: When you are discharged from the hospital, it is important for you to follow the instructions listed below: * During the first week at home, you should be able to care for yourself and your baby. In addition, the usual light household activities are encouraged. * Limit your activities to the way you feel. Do not try to clean the house or move furniture. Be sensible. * If you actively engage in sports and have done so up until the time of your delivery, you may resume these activities as soon as you feel able. This may take up to one month or even longer. Use good judgment. * Continue to take your vitamins for at least six weeks after the of your baby. * Your diet need not be limited unless you were on a special diet before your delivery. Breast-feeding mothers need around 2500 calories per day and at least 64-80 ounces of fluid per day (8 to 10 glasses). * You should eat foods from the four major food groups. Crash diets or fad diets are to be avoided. Eating lean meats, fresh fruits and vegetables, low-fat dairy products, high fiber foods and a regular exercise program, will help you get back to your pre- weight without putting your health at risk. * Constipation is sometimes a problem after delivery. Take a mild laxative as needed. If breast feeding, Milk of Magnesia is acceptable to use. You may use a suppository or Fleets enema. * A daily shower or tub bath is suggested. Wash incision daily with warm soapy water and pat dry. It doesn't need to be covered unless drainage is present. * A bloody vaginal discharge will usually continue until around four weeks . A small amount of bleeding may continue for as long as six weeks. Vaginal discharge changes from the bright red bleeding after delivery to pink then brownish and finally yellowish-pink before becoming white and disappearing. * Bleeding may increase with activity. Your first period may come in 4-8 weeks. If you are breast feeding, your period may be delayed even longer. * [place] (sex) can begin whenever both you and your partner feel comfortable and do not have any form of genital infection. It is recommended that you wait at least six weeks for internal and external healing to occur. If you have questions, please talk to your health care practitioner. A condom should be used to prevent infection and . * Foreplay, gentle intercourse and lubrication is very important the first several times to prevent pain. A water-based lubricant such as K-Y jelly or Astroglide may be used. * If you have RH negative blood and your baby is RH positive, you will receive RHOGAM by injection prior to discharge. The nurse will give you a card to keep with you that has the date and place that you received RHOGAM after delivery. * During your care, you had a Rubella screen done to check for the presence of rubella antibodies in your blood. If your test was negative, you will receive a Rubella vaccine prior to discharge. This vaccine may cause a fever, soreness at the injection site and flu-like symptoms. If these symptoms persist, notify your health care practitioner. is not advised for one month after a Rubella vaccine. * Verbalizes understanding of car seat law as reviewed with patient nursing. * Car Seat hand-out given and reviewed with patient by nursing. * Shaken baby information reviewed with patient by nursing. Call you doctor if: * Heavy bleeding (saturating several pads an hour) or passing clots the size of your fist. * A fever >101 degrees F (38.3 degrees C) on two occasions four hours apart and /or chills. * Unusual pain in the pelvic or vaginal areas. * Call the doctor for any increased redness, drainage or swelling around the incision and any pain unrelieved by prescribed pain medication. * "Baby Blues" lasting longer than two weeks. If you have any questions or concerns, call your health care practitioner at . FOLLOW UP VISIT: * Please call the office at to schedule a 6 week examination. It is important you keep this appointment. It is important for you to make arrangements for either yearly or twice yearly check-ups thereafter. Current Hospital Diet Patient's current hospital diet: Discharge Diet Recommended Diet: Regular Diet Procedures Procedures Performed: Primary Caesarean Section for the for a viable male child at 0521. Pending Studies Studies pending at discharge: no Medical Emergencies . Who to Call and When: Medical Emergencies: If at any time you feel your situation is an emergency, please call [phone] immediately. . Non-Emergent Contact Non-Emergency issues call your: Primary Care Provider . . "Provider Documentation" section prepared by Lazaro Sharp. .
[2017-09-05] MEDS: DOCUSATE SODIUM 100 MG CAP PO SCH ×2 (08:00→19:44)
[2017-09-05] MEDS: KETOROLAC TROMETHAMINE 30 MG/ML VIAL IV. PRN ×3 (08:38→22:01)
[2017-09-05] MEDS: SIMETHICONE 80 MG CHEW PO SCH ×4 (09:00→19:44)
[2017-09-05] MEDS ORDERED: LIDOCAINE HCL 2% LOCAL 20 ML VIAL INFIL ONE (12:14)
[2017-09-05] MEDS: CEFAZOLIN IV 2,000 MG in SYRINGE 0 ML IV SCH ×2 (14:21→22:01)
[2017-09-05] MEDS ORDERED: TERBUTALINE SULFATE 1 MG/ML VIAL ONE (19:03)
[2017-09-05] MEDS ORDERED: DC INTRASPINAL MORPHINE ONE (23:50)
[2017-09-05] MEDS ORDERED: KETOROLAC TROMETHAMINE 30 MG/ML VIAL IV. PRN (23:50)
[2017-09-05] MEDS ORDERED: OXYCODONE/ACETAMINOPHEN 5-325 TAB PO PRN ×2 (23:50)
[2017-09-05] MEDS ORDERED: ZOLPIDEM TARTRATE 5 MG TAB PO PRN (23:50)
[2017-09-06 00:10] VITALS: BP 99/61; PULSE 93; TEMP 36.8; O2SAT 94; O2SAT 95
[2017-09-06 04:20] VITALS: BP 103/70; PULSE 90; TEMP 36.8
[2017-09-06] MEDS: IBUPROFEN 600 MG TAB PO PRN ×4 (04:40→23:41)
[2017-09-06] MEDS: CEFAZOLIN IV 2,000 MG in SYRINGE 0 ML IV SCH (06:08)
[2017-09-06 06:46] LABS: BASO % 0.1 %; BASO ABS # 0.01 K/uL (0-0.2); EOS % 0.3 %; EOS ABS # 0.03 K/uL (0-0.5); HEMATOCRIT 27.3 % (37-47); HEMOGLOBIN 9.4 g/dL (12.0-16.0); IG# 0.05 K/uL (0.00-0.02); LYMPH % 15.6 %; LYMPH ABS # 1.79 K/uL (1.2-3.4); MEAN CELL VOLUME 90.7 fL (80-100); MEAN CORPUSCULAR HEMOGLOBIN 31.2 pg (25-34); MEAN CORPUSCULAR HGB CONC 34.4 g/dl (32-36); MEAN PLATELET VOLUME 9.5 fL (7.4-10.4); MONO % 6.4 %; MONO ABS # 0.73 K/uL (0.11-0.59); NEUT % 77.2 %; NEUT ABS # 8.85 K/uL (1.4-6.5); PLATELET COUNT 170 K/uL (130-400); RED CELL DISTRIBUTION WIDTH CV 13.8 % (11.5-14.5); RED CELL DISTRIBUTION WIDTH SD 45.2 fL (36.4-46.3); WHITE BLOOD COUNT 11.46 K/uL (4.8-10.8)
--- NOTE | 2017-09-06 06:52 | Progress Note ---
Subjective September 06, 2017. Subjective conversation w/ patient Ambulation: limited ambulation Voiding: no voiding problems Passing Gas: Yes Diet Tolerance: Regular Diet Lochia: Moderate Feeding Type: Breast Feeding Pain: 2/10 Review of Systems Constitutional: No fever, No chills Respiratory: No cough, No shortness of breath Cardiac: No chest pain Abdomen: No nausea, No vomiting Objective Vital Signs Date Time Temp Pulse Resp B/P (MAP) Pulse Ox O2 Delivery O2 Flow Rate FiO2 09/06/17 04:20 36.8 90 18 103/70 (81) 09/06/17 00:10 36.8 93 16 99/61 (74) 95 Room Air 09/06/17 00:10 16 94 09/06/17 00:10 95 Room Air 09/05/17 22:20 16 94 09/05/17 21:20 16 96 09/05/17 20:20 20 98 09/05/17 19:20 18 96 09/05/17 19:15 36.9 89 18 102/65 (77) 96 Room Air 09/05/17 18:20 18 96 09/05/17 17:20 20 95 09/05/17 16:20 16 98 09/05/17 15:40 36.9 78 16 107/71 (83) 99 Room Air 09/05/17 15:40 99 Room Air 09/05/17 15:20 16 100 09/05/17 14:20 16 96 09/05/17 13:20 16 100 09/05/17 12:40 36.6 96 14 103/67 (79) 97 Room Air 09/05/17 12:20 14 100 09/05/17 11:20 16 100 09/05/17 10:40 36.8 92 13 110/69 (83) 99 Room Air 09/05/17 10:20 16 100 09/05/17 09:20 36.6 101 16 105/65 09/05/17 09:20 100 Room Air 09/05/17 09:20 100 Room Air 09/05/17 09:20 16 100 Physical Exam General Appearance: WELL-APPEARING, WD/WN, NO APPARENT DISTRESS Respiratory/Chest: lungs clear, normal breath sounds Cardiovascular: regular rate, rhythm Abdomen: soft Fundus: Firm, Tender, Relation to Umbilicus (at u) Incision Description: Clean, Dry & Intact Extremities: no calf tenderness Laboratory Results Last 24 Hours Test 09/06/17 06:05 White Blood Count 11.46 K/uL Red Blood Count 3.01 M/uL Hemoglobin 9.4 g/dL Hematocrit 27.3 % Mean Corpuscular Volume 90.7 fL Mean Corpuscular Hemoglobin 31.2 pg Mean Corpuscular Hemoglobin Concent 34.4 g/dl Platelet Count 170 K/uL Mean Platelet Volume 9.5 fL Neutrophils (%) (Auto) 77.2 % Lymphocytes (%) (Auto) 15.6 % Monocytes (%) (Auto) 6.4 % Eosinophils (%) (Auto) 0.3 % Basophils (%) (Auto) 0.1 % Neutrophils # (Auto) 8.85 K/uL Lymphocytes # (Auto) 1.79 K/uL Monocytes # (Auto) 0.73 K/uL Eosinophils # (Auto) 0.03 K/uL Basophils # (Auto) 0.01 K/uL RDW Standard Deviation 45.2 fL RDW Coefficient of Variation 13.8 % Immature Granulocyte % (Auto) 0.4 % Immature Granulocyte # (Auto) 0.05 K/uL Medications Current Inpatient Medications Medications (Trade) Dose Ordered Sig/Iram Route Start Time Stop Time Status Last Admin Dose Admin Oxytocin 20 units/ Lactated Ringer's 1,002 ml @ 125 mls/hr Q8H1M IV 09/05/17 07:00 10/05/17 06:59 09/05/17 09:23 125 MLS/HR Lactated Ringer's 1,000 ml @ 125 mls/hr Q8H IV 09/05/17 06:02 10/05/17 06:01 09/05/17 17:20 125 MLS/HR Ketorolac Tromethamine (Toradol Inj) 30 mg Q6H PRN IV. 09/05/17 23:50 09/10/17 23:49 Oxycodone/ Acetaminophen (Percocet 5-325mg Tab) 1 tab Q4H PRN PO 09/05/17 23:50 09/19/17 23:49 Oxycodone/ Acetaminophen (Percocet 5-325mg Tab) 2 tab Q4H PRN PO 09/05/17 23:50 09/19/17 23:49 Ibuprofen (Motrin Tab) 600 mg Q4H PRN PO 09/05/17 06:15 10/05/17 06:14 09/06/17 04:40 600 MG Ondansetron HCl (Zofran Inj) 4 mg Q4H PRN IV 09/05/17 23:50 10/05/17 23:49 Docusate Sodium (coLACE CAP) 100 mg BID PO 09/05/17 08:00 10/05/17 07:59 09/05/17 19:44 100 MG Cocaine HCl (Supercream 0.870% Cr) BID PRN EXT 09/05/17 06:15 09/19/17 06:14 Lanolin (Lanolin Oint) PRN PRN EXT 09/05/17 06:15 10/05/17 06:14 Hydrocortisone Acetate (Anusol Hc Supp) 25 mg BID PRN GA 09/05/17 06:15 10/05/17 06:14 Benzocaine (Dermoplast Aero Spr) 1 appln PRN PRN EXT 09/05/17 06:15 10/05/17 06:14 Zolpidem Tartrate (Ambien Tab) 5 mg HSZ PRN PO 09/05/17 23:50 10/05/17 23:49 Simethicone (Mylicon Chew Tab) 80 mg QID PO 09/05/17 09:00 10/05/17 08:59 09/05/17 19:44 80 MG Diphenhydramine HCl (Benadryl Cap) 25 mg QID PRN PO 09/05/17 23:50 10/05/17 23:49 Diphenhydramine HCl (Benadryl Inj) 25 mg QID PRN IV 09/05/17 23:50 10/05/17 23:49 Levothyroxine Sodium (Synthroid Tab) 50 mcg DAILYBB PO 09/06/17 07:30 10/06/17 07:29 Assessment and Plan Post-Op Day#: 1 Continue Routine Care: Resident Physician Supervision Note: I interviewed and examined the patient. Discussed with Dr. Dempsey and agree with findings and plan as documented in the note. Any exceptions or clarifications are listed here: [None] Documented By: Adina Maxwell Abigail 31 year old s/p emergency day 1 - A+, Rubella Immune, GBS -ve - pt doing well clinically - Vital Signs reviewed and WNL - Hemoglobin Reviewed. 12.5 -> 9.4 - Encourage Ambulation, monitor and control pain - Encourage Breast Feeding Lazaro Sharp, PGY1 Resident Tracking Resident Involvement: Resident Care Provided Care Provided: OB Delivery
[2017-09-06] MEDS: LEVOTHYROXINE 50 MCG TAB PO SCH (07:27)
[2017-09-06 07:30] VITALS: BP 104/64; PULSE 94; TEMP 36.8; O2SAT 98
[2017-09-06] MEDS: SIMETHICONE 80 MG CHEW PO SCH ×4 (08:26→20:17)
[2017-09-06] MEDS: DOCUSATE SODIUM 100 MG CAP PO SCH ×2 (08:27→20:17)
[2017-09-06] MEDS ORDERED: OXYCODONE/ACETAMINOPHEN 5-325 TAB PO PRN (08:45)
[2017-09-06] MEDS ORDERED: NURSING VERBAL MED ORDER ONE (11:00)
[2017-09-06 15:45] VITALS: BP 111/79; PULSE 90; TEMP 36.8; O2SAT 98
[2017-09-06] MEDS: OXYCODONE/ACETAMINOPHEN 5-325 TAB PO PRN ×2 (17:06→23:42)
[2017-09-06 23:45] VITALS: BP 119/84; PULSE 83; TEMP 36.6
[2017-09-07 06:23] LABS: HEMATOCRIT 28.7 % (37-47); HEMOGLOBIN 9.8 g/dL (12.0-16.0)
--- NOTE | 2017-09-07 07:00 | Progress Note ---
Subjective September 07, 2017. Subjective conversation w/ patient Ambulation: ambulating normally Voiding: no voiding problems Diet Tolerance: Regular Diet Lochia: Moderate Feeding Type: Breast Feeding Pain: 2/10, improved from yesterday Review of Systems Constitutional: No fever, No chills Respiratory: No cough, No shortness of breath Cardiac: No chest pain Abdomen: No nausea, No vomiting Objective Vital Signs Date Time Temp Pulse Resp B/P (MAP) Pulse Ox O2 Delivery O2 Flow Rate FiO2 09/06/17 23:45 36.6 83 16 119/84 (96) Room Air 09/06/17 23:45 Room Air 09/06/17 15:45 98 Room Air 09/06/17 15:45 36.8 90 20 111/79 (90) 98 Room Air 09/06/17 07:30 98 Room Air 09/06/17 07:30 36.8 94 16 104/64 (77) 98 Room Air Physical Exam General Appearance: WELL-APPEARING, WD/WN, NO APPARENT DISTRESS Respiratory/Chest: lungs clear, normal breath sounds Cardiovascular: regular rate, rhythm Abdomen: non tender, soft Fundus: Firm, Non-Tender, Relation to Umbilicus (1 below) Incision Description: Clean, Dry & Intact Extremities: no calf tenderness Laboratory Results Last 24 Hours Test 09/07/17 05:59 Hemoglobin 9.8 g/dL Hematocrit 28.7 % Assessment and Plan Post-Op Day#: 2 Continue Routine Care: 31 year old s/p emergency day 2 - A+, Rubella Immune, GBS -ve - pt doing well clinically - Vital Signs reviewed and WNL - Hemoglobin Reviewed -> stable at 9.8 - Encourage Ambulation, monitor and control pain - Encourage Breast Feeding - anticipate d/c tomorrow Resident Physician Supervision Note: I interviewed and examined the patient. Discussed with Dr. Sharp and agree with findings and plan as documented in the note. Any exceptions or clarifications are listed here: Doing well. Continue routine PP/PO care. Documented By: Torrie Marroquin Resident Tracking Resident Involvement: Resident Care Provided Care Provided: OB Delivery
[2017-09-07] MEDS: LEVOTHYROXINE 50 MCG TAB PO SCH (07:51)
[2017-09-07 08:00] VITALS: BP 111/79; PULSE 92; TEMP 36.8; O2SAT 100
[2017-09-07] MEDS ORDERED: MAGNESIUM HYDROXIDE SUSP 30 ML UDC PO PRN (08:15)
[2017-09-07] MEDS: DOCUSATE SODIUM 100 MG CAP PO SCH ×2 (08:20→19:18)
[2017-09-07] MEDS: SIMETHICONE 80 MG CHEW PO SCH ×4 (08:20→19:18)
[2017-09-07] MEDS: OXYCODONE/ACETAMINOPHEN 5-325 TAB PO PRN ×2 (08:21→13:31)
[2017-09-07] MEDS: IBUPROFEN 600 MG TAB PO PRN ×4 (08:21→23:43)
[2017-09-07 16:05] VITALS: BP 117/65; PULSE 85; TEMP 36.7; O2SAT 100
[2017-09-07 23:40] VITALS: BP 112/72; PULSE 78; TEMP 36.9; O2SAT 99
[2017-09-08] MEDS: OXYCODONE/ACETAMINOPHEN 5-325 TAB PO PRN ×4 (02:24→22:34)
--- NOTE | 2017-09-08 06:48 | Progress Note ---
Subjective September 08, 2017. Subjective conversation w/ patient, physical exam, chart review, lab review Ambulation: ambulating normally Voiding: no voiding problems Diet Tolerance: Regular Diet Lochia: Small Objective Vital Signs Date Time Temp Pulse Resp B/P (MAP) Pulse Ox O2 Delivery O2 Flow Rate FiO2 09/07/17 23:40 99 Room Air 09/07/17 23:40 36.9 78 18 112/72 (85) 99 Room Air 09/07/17 16:05 100 Room Air 09/07/17 16:05 36.7 85 18 117/65 (82) 100 Room Air 09/07/17 08:00 36.8 92 16 111/79 (90) 100 Room Air 09/07/17 08:00 Room Air Physical Exam General Appearance: WELL-APPEARING Abdomen: non tender Fundus: Firm Incision Description: Clean, Dry & Intact Extremities: no calf tenderness Assessment and Plan Post-Op Day#: 3 Continue Routine Care: Home
[2017-09-08] MEDS ORDERED: OXYC-57 PO (06:49)
[2017-09-08] MEDS ORDERED: MTR600X PO (06:49)
[2017-09-08] MEDS: LEVOTHYROXINE 50 MCG TAB PO SCH (07:27)
[2017-09-08 08:00] VITALS: BP 113/76; PULSE 89; TEMP 36.6; O2SAT 99
[2017-09-08] MEDS: DOCUSATE SODIUM 100 MG CAP PO SCH ×2 (08:21→21:12)
[2017-09-08] MEDS: SIMETHICONE 80 MG CHEW PO SCH ×4 (08:21→21:12)
[2017-09-08] MEDS: IBUPROFEN 600 MG TAB PO PRN ×4 (08:22→22:33)
[2017-09-08 16:30] VITALS: BP 95/62; PULSE 93; TEMP 36.9; O2SAT 98
[2017-09-08 23:30] VITALS: BP 119/83; PULSE 76; TEMP 36.5
[2017-09-09] MEDS: IBUPROFEN 600 MG TAB PO PRN ×2 (03:46→09:34)
[2017-09-09] MEDS: OXYCODONE/ACETAMINOPHEN 5-325 TAB PO PRN ×2 (03:46→10:27)
--- NOTE | 2017-09-09 06:34 | Progress Note ---
Subjective September 09, 2017. Subjective conversation w/ patient, physical exam Ambulation: ambulating normally Voiding: no voiding problems Diet Tolerance: Regular Diet Lochia: Small Feeding Type: Breast Feeding Pain: well controlled Comment: baby has gained weight overnight, anticipate discharge with baby, but peds still to see baby this am. Objective Vital Signs Date Time Temp Pulse Resp B/P (MAP) Pulse Ox O2 Delivery O2 Flow Rate FiO2 09/08/17 23:30 36.5 76 18 119/83 (95) Room Air 09/08/17 23:30 Room Air 09/08/17 16:30 98 Room Air 09/08/17 16:30 36.9 93 18 95/62 (73) 98 Room Air 09/08/17 08:00 Room Air 09/08/17 08:00 36.6 89 16 113/76 (88) 99 Room Air Physical Exam General Appearance: WELL-APPEARING, WD/WN, NO APPARENT DISTRESS Respiratory/Chest: lungs clear Cardiovascular: regular rate, rhythm Abdomen: non tender, soft Fundus: Firm, Relation to Umbilicus (2 down) Incision Description: Clean, Dry & Intact Extremities: non-tender Assessment and Plan Post-Op Day#: 4 Continue Routine Care: stable, routine care. f/u 6wks pp check. instructions reviewed. d/c home
[2017-09-09] MEDS: DOCUSATE SODIUM 100 MG CAP PO SCH (08:00)
[2017-09-09] MEDS: SIMETHICONE 80 MG CHEW PO SCH (08:28)
[2017-09-09] MEDS: LEVOTHYROXINE 50 MCG TAB PO SCH (08:28)
[2017-09-09 09:00] VITALS: BP 111/74; PULSE 89; TEMP 36.7; O2SAT 99
[2017-09-09 11:42] VITALS: BP_DIAS 74; PULSE 89; TEMP 36.7
--- NOTE | 2017-09-12 09:06 | DISCHARGE SUMMARY ---
ADMISSION DIAGNOSES: 1. 39+ week intrauterine . 2. Early labor. 3. bradycardia. 4. Meconium-stained amniotic fluid. DISCHARGE DIAGNOSES: 1. 39+ week intrauterine . 2. Early labor. 3. bradycardia. 4. Meconium-stained amniotic fluid. PROCEDURE: Stat low transverse section. BRIEF HISTORY AND HOSPITAL COURSE: This is a 31-year-old 2, para 0-0-1-0 at 39-6/7th weeks who presented to labor and delivery with early labor. She ultimately dilated to 3-4 cm and was admitted. She received an epidural and subsequently her water broke with evidence of thick meconium-stained fluid. Shortly thereafter, she had an episode of bradycardia for at least 16 minutes that was traced and was unable to recover with position change, oxygen, IV fluid bolusing. Her vaginal exam was only 5 cm dilated and the decision was made to proceed with a stat section. It was performed without incident using her epidural with Duramorph and some local 2% lidocaine at the incision site. Her estimated blood loss was 500 mL. A male was delivered. Her postop course and recovery was otherwise unremarkable. She was tolerating a regular diet, voiding spontaneously without difficulty and ambulating without difficulty, and was stable for her discharge to home on her postop day number 4. She is to follow up in 6 weeks for a routine check and was given appropriate pain prescriptions as well as instructions.
== END 2017-09-09 12:15 | disposition home or self-care (01) | DRG 766 ==
LOC: C.LD 23:54 → C.OPB 23:54 → C.LD 09-05 05:00 → C.OBG 09-05 09:34 → EDSTATUS 09-06 23:51 → C.OBG 09-08 16:00
PROVIDERS: ADMIT Obstetrics & Gynecology; ATTEND Obstetrics & Gynecology
PROC: 10D00Z1 Extraction of Products of Conception, Low, Open Approach (ICD-10-PCS; principal; 2017-09-05 05:14)
DX: O76 Abnormality in fetal heart rate and rhythm complicating labor and delivery (principal); O77.0 Labor and delivery complicated by meconium in amniotic fluid; O69.81X0 Labor and delivery complicated by cord around neck, without compression, not applicable or unspecified; O69.82X0 Labor and delivery complicated by other cord entanglement, without compression, not applicable or unspecified; Z3A.39 39 weeks gestation of pregnancy; Z37.0 Single live birth

== ENCOUNTER 2019-08-01 22:03 | Inpatient (IN) ==
[2019-08-01] MEDS ORDERED: LACTATED RINGER'S 1,000 ML IV SCH (22:45)
--- NOTE | 2019-08-01 22:46 | History & Physical Report ---
Date of Service August 01, 2019 Assessment & Plan (1) Previous delivery affecting , antepartum: Repeat section. The patient was counseled to the nature of the procedure including alternatives such as labor. Risks were discussed including bleeding infection injury to bowel bladder ureter vessels and even baby. The risks of internal organ injury were discussed as being higher with prior sections. Deep Vein Thrombosis, pulmonary embolus and breakdown of the incision discussed. Deep vein thrombosis pulmonary embolus hernia and failure of the incision to heal were discussed Patient verbalized understanding of this and was given ample time to ask quest ions History of Present Illness Primary Care Provider: Srinivas Cast MD 39+ weeks present with CTX q6-7', intense. Is scheduled for C/S on Tuesday. Does not wish Allergies Allergy/AdvReac Type Severity Reaction Status Date / Time No Known Drug Allergies Allergy Mild None Verified 08/01/19 22:24 Home Medications Home Medications Medication Instructions Recorded Confirmed Type cholecalciferol (vitamin D3) 50 2,000 units PO DAILY #30 cap 12/13/18 08/01/19 Rx mcg (2,000 unit) capsule prenat.vits,porsche,[id number] 1 tab PO QPM 12/25/18 08/01/19 History levothyroxine 50 mcg tablet 50 mcg PO DAILY #30 tab 03/02/19 08/01/19 Rx Patient History Medical History (Updated 07/30/19 @ 15:31 by Grazyna Saldivar RN) History of spontaneous Hx of abnormal cervical Pap smear Hypothyroidism Social History (Updated 12/25/18 @ 15:39 by Leona Castillo) Preferred Language: [place] Citizen Communication Ability: Effective Roentgenologist Required: No Beliefs That Will Affect Care: None marital status: marital status details: Bin Perez (35) [phone] Current Living Situation: Spouse Current Living Situation Comment: lives with spouse and child current occupational status: other current occupation: stay at home mom Other Information That Helps Us Care for You: No Feels Safe at Home: Yes Safety Concerns: Feels Safe At This Time Smoking Status: Never smoker Second Hand Exposure: No ; Hx Alcohol Use: No Hx Substance Use: No Physical Exam Constitutional: WD/WN, vitals as above Respiratory: normal respiratory effort, lungs clear to auscultation Cardiovascular: RRR, no murmur, no edema Genitourinary: Manual OB Exam: + cervical dilation (0) Results & Data Vital Signs (Past 12 Hours) Vital Signs Temp Pulse Resp BP 08/01/19 22:26 97.7 F 16 08/01/19 22:14 88 109/72 Coding Level of Care Code None Diagnoses Previous delivery affecting , antepartum O34.219
[2019-08-01] MEDS ORDERED: CEFAZOLIN 2000MG 2,000 MG/15 ML SYR IV STA (22:50)
[2019-08-01] MEDS ORDERED: fentaNYL citrate 100 MCG/2 ML VIAL ONE (22:52)
[2019-08-01] MEDS ORDERED: MoRPHine SULFATE PF 1 MG/ML 10 ML AMP/VIAL ONE (22:52)
[2019-08-01] MEDS ORDERED: OXYTOCIN 10 UNITS/ML VIAL ONE (22:58)
[2019-08-01] MEDS ORDERED: CITRIC ACID/SODIUM CITRATE 15 ML UDC ONE (23:00)
--- NOTE | 2019-08-01 23:04 | Anesthesiology Consultation ---
Date of Service August 01, 2019 Assessment & Plan (1) Encounter for pre-operative examination: Chart Review Chart Review: Acceptable Risk for Surgery Consults Requested none ASA [id number] Proposed Anesthesia Anesthesia Type: Spinal Risk / Benefits Reviewed With: PT / POA / Parent / Guardian, Accepts Plan and Informed Consent Obtained History Surgery Operation Date: 08/01/19 22:45 Proposed Procedures p Section in LD - J. Rufino Metcalf MD, FACOG Height/Weight Height: 4 ft 11 in Weight: 61.689 kg Allergies Allergy/AdvReac Type Severity Reaction Status Date / Time No Known Drug Allergies Allergy Mild None Verified 08/01/19 22:24 Medications Home Medications Medication Instructions Recorded Confirmed Last Taken cholecalciferol (vitamin D3) 50 2,000 units PO DAILY #30 cap 12/13/18 08/01/19 07/31/19 mcg (2,000 unit) capsule prenat.vits,porsche,nes-drlq-lnzfv 1 tab PO QPM 12/25/18 08/01/19 08/01/19 levothyroxine 50 mcg tablet 50 mcg PO DAILY #30 tab 03/02/19 08/01/19 08/01/19 Active Medications Generic Name Dose Route Start Last Admin Trade Name Freq PRN Reason Stop Dose Admin Lactated Ringer's 1,000 mls @ 999 mls/hr 08/01/19 22:45 08/01/19 22:50 Lr IV 08/01/19 23:45 999 mls/hr .Q1H1M JORGE Administration Past Medical History Medical History History of spontaneous Hx of abnormal cervical Pap smear Hypothyroidism Exercise / Class Metabolic Activity II 4-5 Yardwork/Stairs/Walk up hill Past Family History Family History Father Dyslipidemia Mother Hypertension Aunt Breast cancer Grandfather Heart disease Other Asthma Past Surgical History Surgical History History of section History of dilatation and curettage [place] teeth removed Past Anesthesia History No Hx of Anesthesia Complications and No Family Hx of Anesthesia Complications History of PONV No Hx of PONV and No Hx of Motion Sickness Social History Smoking Status: Never smoker Hx Alcohol Use: No Hx Substance Use: No substance use type: does not use Physical Exam Vital Signs Last Vital Signs Temp 97.7 F 08/01/19 22:26 Pulse 88 08/01/19 22:14 Resp 16 08/01/19 22:26 BP 109/72 08/01/19 22:14 ENMT Mouth: no dentition abnormality Thyromental Distance: > or= 3.5 Finger Breadths Mallampati Class: II Neck normal visual inspection Respiratory normal respiratory effort Auscultation: lungs clear to auscultation bilaterally Cardiovascular Rate/Rhythm: regular rate and regular rhythm
[2019-08-01 23:13] LABS: Basophils # (auto) 0.02 K/uL (0-0.2); Basophils % (auto) 0.2 %; Eosinophils # (auto) 0.04 K/uL (0-0.5); Eosinophils % (auto) 0.4 %; Hematocrit (blood only) 38.1 % (37-47); Hemoglobin 13.1 g/dL (12.0-16.0); Immature Granulocytes # (auto) 0.12 K/uL (0.00-0.02); Immature Granulocytes % (auto) 1.2 %; Lymphocytes # (auto) 3.01 K/uL (1.2-3.4); Lymphocytes % (auto) 31.2 %; Mean Corpuscular Hemoglobin 30.8 pg (25-34); Mean Corpuscular Volume 89.4 fL (80-100); Mean Platelet Volume 9.5 fL (7.4-10.4); Monocytes # (auto) 0.83 K/uL (0.11-0.59); Monocytes % (auto) 8.6 %; Neutrophils # (auto) 5.62 K/uL (1.4-6.5); Neutrophils % (auto) 58.4 %; Platelet Count 320 K/uL (130-400); RDW Coefficient of Variation 14.7 % (11.5-14.5); RDW Standard Deviation 47.6 fL (36.4-46.3); Red Blood Count 4.26 M/uL (4.2-5.4); White Blood Count 9.64 K/uL (4.8-10.8)
[2019-08-01 23:15] LABS: Mean Corpuscular Hgb Conc 34.4 g/dL (32-36)
[2019-08-01] MEDS ORDERED: NALOXONE HCL 1 MG in SODIUM CHLORIDE 0.9% 1000ML 1,000 ML IV PRN (23:40)
[2019-08-01] MEDS ORDERED: NALBUPHINE HCL INJ 10 MG/ML AMP IV PRN (23:40)
[2019-08-01] MEDS ORDERED: NALOXONE HCL 0.08 MG in SYRINGE 1.8 ML IV PRN (23:40)
[2019-08-01] MEDS ORDERED: ePHEDrine sulfate 50 MG/ML AMP IV PRN (23:40)
[2019-08-01] MEDS ORDERED: NALOXONE HCL 0.4 MG/1 ML VIAL/CARP IV PRN (23:40)
[2019-08-01] MEDS ORDERED: LACTATED RINGER'S 500 ML IV PRN (23:40)
[2019-08-01] MEDS ORDERED: MoRPHine SULFATE PF 1 MG/ML 10 ML AMP/VIAL INT SPINAL ONE (23:40)
[2019-08-01] MEDS ORDERED: NO NARCOTICS OR SEDATIVES SCH (23:45)
[2019-08-01] MEDS ORDERED: DC INTRASPINAL MORPHINE SCH (23:45)
[2019-08-01] MEDS ORDERED: SODIUM CHLORIDE 0.9% 1000ML 1,000 ML IV SCH (23:45)
[2019-08-02 00:14] LABS: Base Excess Cord Arterial Bld -0.3 mEq/L (-9-1.8); CO2 Cord Arterial Blood 62 mmHg (39.1-73.5); HCO3 Cord Arterial Blood 28 mmol/L (19.7-28.5); PO2 Cord Arterial Blood 18 mmHg (4.1-31.7); pH Cord Arterial Blood 7.28 (7.1-7.38)
[2019-08-02 00:19] LABS: Base Excess Cord Venous Blood -1.3 mEq/L (-7.7-1.9); Cord Venous Blood HCO3 25 mmol/L (18.4-26.8); Cord Venous Blood PCO2 46 mmHg (30.4-57.2); Cord Venous Blood PO2 26 mmHg (14.1-43.3); Cord Venous Blood pH 7.35 (7.20-7.44)
--- NOTE | 2019-08-02 00:19 | Operative Report ---
PG Post Operative Report Pre & Post Diagnosis Operation Date: 08/01/19 22:45 Pre-Op Diagnosis: 1. Prior c/section 2. Contractions Post-Op Diagnosis: 1. Same 2. Delivery of live male child at 2349 I identified the patient and participated in the time-out.: Yes Procedure Operation Date: 08/01/19 22:45 Actual Procedures p Section in LD - Mackenzie Metcalf MD, FACOG Surgeon Mackenzie Metcalf MD, FACOG Log Chipper Operator Sera Au Estimated Blood Loss 400 Findings Consistent with Post-Op Diagnosis Specimens cord gases, blood Description of Procedure Regional anesthetic was given by anesthesia patient had a Stahl catheter inserted by nursing patient was prepped and draped in supine position with a leftward tilt preoperative antibiotics were given timeout performed Pickups with teeth were used to test the skin site and it was found adequate for incision scalpel used to make a Pfannenstiel incision cutting down through subcutaneous fat through the fascia fascia was then dissected laterally with the curved Luevano's fascia was released superiorly and inferiorly from the rectus muscles with the curved Luevano scissors, rectus muscle split peritoneal cavity entered in a superior location. Opening enlarged to allow exposure bladder retractor placed Metzenbaums used to dissect away the bladder flap low segment transverse incision made on the uterus with scalpel entry was done bluntly with the hydrotel operator's finger hysterotomy incision extended with the hydrotel operator's finger in the usual fashion baby was delivered then by flexion of the head and pressure from the executive assistant on the abdomen mouth and then nares were suctioned baby was then delivered fully without difficulty without excessive force live vigorous infant cord clamped and cut cord gases obtained cord blood obtained placenta removed manually within ensured all placenta removed with a moist lap sponge uterus exteriorized IV Pitocin had been started by anesthesia and uterine tone improved. The uterus was closed in 2 layers first layer and 0 Monocryl running locked second layer 0 Monocryl nonlocked after. Small left sided hematoma, that responded to 1 figure of 8 stitch. Stable. Generous irrigation and suction of the cul-de-sac and bladder flap regions hemostasis was excellent uterus was placed back in the peritoneal cavity and hemostasis was excellent rectus muscles were inspected and found to be dry fascia closed with 0 Vicryl subcutaneous fat closed with 3-0 Vicryl prior to this subcutaneous fat was irrigated skin closed with 4-0 subcuticular Monocryl incision Steri-Stripped urine was clear at the end of the procedure I attest to the content of the Intraoperative Record and any orders documented therein. Any exceptions are noted below.
[2019-08-02 00:25] LABS: Oxygen Sat Cord Arterial Blood < 60.0 % (<60)
[2019-08-02 00:26] LABS: O2 Saturation Cord Venous Bld < 68.0 % (<68)
--- NOTE | 2019-08-02 00:31 | Anesthesiology Progress Note ---
Date of Service August 02, 2019 Anesthesia Post Procedure Vital Signs Vital Signs: Temp Pulse Resp BP Pulse Ox 08/02/19 00:28 69 96/59 L 08/02/19 00:27 70 83/56 L 08/02/19 00:26 69 99 08/01/19 22:26 97.7 F 16 08/01/19 22:14 88 109/72 Transfer of Care Handoff Completed per policy Notes Mental Status: alert / awake / arousable and participated in evaluation Patient Amnestic to Procedure: Yes Nausea / Vomiting: adequately controlled Pain: adequately controlled Airway Patency, RR, SpO2: stable & adequate BP & HR: stable & adequate Hydration State: stable & adequate Anesthetic Complications: no major complications apparent and Pt Satisfied with anesthetic care
[2019-08-02] MEDS ORDERED: SUPERCREAM 0.870% 15 GM JAR EXT PRN (00:39)
[2019-08-02] MEDS ORDERED: BENZOCAINE 20% AER SPR 82.5 GM CAN EXT PRN (00:39)
[2019-08-02] MEDS ORDERED: LACTATED RINGER'S 1,000 ML IV SCH (00:39)
[2019-08-02] MEDS ORDERED: HYDROCORTISONE ACETATE 25 MG SUPP PR PRN (00:39)
[2019-08-02] MEDS ORDERED: SENNA 8.6 MG TAB PO PRN (00:39)
[2019-08-02] MEDS ORDERED: DIPHTHERIA/TETANUS/PERTUSSIS 0.5 ML SYR/VIAL IM ONE (00:39)
[2019-08-02] MEDS ORDERED: MAGNESIUM HYDROXIDE SUSP 30 ML UDC PO PRN (00:39)
[2019-08-02] MEDS: OXYTOCIN 20 UNITS in LACTATED RINGER'S 1,000 ML IV SCH ×2 (01:10→09:39)
[2019-08-02] MEDS: DiphenhydrAMINE HCL 50 MG/ML VIAL IV PRN ×3 (01:13→16:04)
[2019-08-02] MEDS: KETOROLAC 30 MG/ML VIAL IV PRN ×3 (01:42→15:27)
[2019-08-02] MEDS: MEPERIDINE HCL 25 MG/ML CARP/VIAL IV PRN ×2 (02:35→03:10)
[2019-08-02] MEDS: LEVOTHYROXINE SODIUM 50 MCG TABLET PO SCH (06:47)
--- NOTE | 2019-08-02 06:58 | Obstetrical Progress Note ---
Date of Service August 02, 2019 Assessment & Plan (1) Previous delivery affecting , antepartum: POD#1 Cont current care. Remove catheter later today. Ambulation Subjective Voiding: patel catheter in place Lochia:: Small Current Pain Level(1-10): 0 Physical Exam Constitutional WD/WN, vitals as above Respiratory normal respiratory effort, lungs clear to auscultation Cardiovascular RRR, no murmur, no edema Gastrointestinal (Abdomen) normal bowel sounds, soft, nontender, no hepatosplenomegaly Results & Data Vital Signs (Past 12 Hours) Vital Signs Temp Pulse Resp BP Pulse Ox 08/02/19 06:10 18 98 08/02/19 05:45 18 100 08/02/19 04:45 18 100 08/02/19 03:30 98.4 F 73 18 116/71 98 08/02/19 02:51 64 98 08/02/19 02:47 70 113/74 08/02/19 02:46 66 99 08/02/19 02:41 67 99 08/02/19 02:37 60 112/73 08/02/19 02:36 59 L 98 08/02/19 02:31 66 98 08/02/19 02:27 98.1 F 61 15 108/70 08/02/19 02:26 59 L 98 08/02/19 02:21 61 95 08/02/19 02:17 68 109/65 08/02/19 02:16 68 100 08/02/19 02:11 57 L 99 08/02/19 02:07 58 L 112/72 08/02/19 02:06 57 L 99 08/02/19 02:01 58 L 99 08/02/19 01:57 63 16 104/67 08/02/19 01:56 64 96 08/02/19 01:51 58 L 100 08/02/19 01:47 72 110/64 08/02/19 01:46 60 89 L 08/02/19 01:41 65 100 08/02/19 01:38 66 116/57 L 08/02/19 01:36 69 90 08/02/19 01:35 69 93 08/02/19 01:31 97.5 F L 69 17 08/02/19 01:30 146 H 122/66 08/02/19 01:27 97.5 F L 18 08/02/19 01:26 68 100 08/02/19 01:21 56 L 100 08/02/19 01:20 52 L 109/63 08/02/19 01:17 17 08/02/19 01:16 65 99 08/02/19 01:11 61 99 08/02/19 01:08 69 91 08/02/19 01:07 73 16 102/60 08/02/19 01:06 72 99 08/02/19 01:03 64 91 08/02/19 01:01 59 L 100 08/02/19 00:57 76 17 107/76 08/02/19 00:56 69 93 08/02/19 00:55 65 94 08/02/19 00:51 64 100 08/02/19 00:47 75 16 108/74 08/02/19 00:46 77 97 08/02/19 00:45 80 88 L 08/02/19 00:41 71 100 08/02/19 00:40 71 91 08/02/19 00:37 80 17 97/64 L 08/02/19 00:36 89 98 08/02/19 00:31 78 98 08/02/19 00:28 97.7 F 69 22 96/59 L 08/02/19 00:27 70 83/56 L 08/02/19 00:26 69 99 08/01/19 22:26 97.7 F 16 08/01/19 22:14 88 109/72
[2019-08-02] MEDS: PRENATAL VITAMIN 1 TAB PO SCH (08:12)
[2019-08-02] MEDS: SIMETHICONE 80 MG CHEW PO SCH ×4 (08:12→20:32)
[2019-08-02] MEDS: DOCUSATE SODIUM 100 MG CAP PO SCH ×2 (08:12→20:32)
[2019-08-02] MEDS: FERROUS SULFATE 325 MG TAB PO SCH (08:12)
[2019-08-02] MEDS: CHOLECALCIFEROL 1,000 UNITS 25 MCG TAB PO SCH (08:36)
[2019-08-02] MEDS ORDERED: SODIUM CHLORIDE 0.65% NA SOLN 45 ML (OCEAN) ONE ×2 (10:36→10:37)
[2019-08-02] MEDS ORDERED: MEPERIDINE HCL 50 MG/ML CARP IV PRN (17:41)
[2019-08-02] MEDS ORDERED: PROMETHAZINE HCL 25 MG in SODIUM CHLORIDE 0.9% 50 ML IV PRN (17:41)
[2019-08-02] MEDS ORDERED: DiphenhydrAMINE HCL 50 MG/ML VIAL IV PRN (17:41)
[2019-08-02] MEDS ORDERED: ONDANSETRON INJ 2 MG/ML 2 ML VIAL IV PRN (17:41)
[2019-08-02] MEDS ORDERED: KETOROLAC 30 MG/ML VIAL IV PRN (17:41)
[2019-08-02] MEDS: OXYCODONE/ACETAMINOPHEN 5mg/325mg TAB PO PRN (20:32)
[2019-08-02] MEDS: IBUPROFEN 600 MG TAB PO PRN (20:33)
[2019-08-02] MEDS ORDERED: NON-FORMULARY MEDICATION (Prenat.Vits,Cal,Min-Iron-Folic 1 TAB) PO SCH (21:00)
[2019-08-03] MEDS: IBUPROFEN 600 MG TAB PO PRN ×5 (00:51→21:00)
[2019-08-03] MEDS: OXYCODONE/ACETAMINOPHEN 5mg/325mg TAB PO PRN ×5 (00:52→20:59)
[2019-08-03] MEDS: LEVOTHYROXINE SODIUM 50 MCG TABLET PO SCH (06:08)
[2019-08-03 06:22] LABS: Basophils # (auto) 0.03 K/uL (0-0.2); Basophils % (auto) 0.2 %; Eosinophils # (auto) 0.15 K/uL (0-0.5); Hematocrit (blood only) 34.1 % (37-47); Hemoglobin 11.1 g/dL (12.0-16.0); Immature Granulocytes # (auto) 0.09 K/uL (0.00-0.02); Immature Granulocytes % (auto) 0.6 %; Lymphocytes # (auto) 3.59 K/uL (1.2-3.4); Lymphocytes % (auto) 24.6 %; Mean Corpuscular Hemoglobin 30.2 pg (25-34); Mean Corpuscular Hgb Conc 32.6 g/dL (32-36); Mean Corpuscular Volume 92.7 fL (80-100); Mean Platelet Volume 9.3 fL (7.4-10.4); Monocytes # (auto) 0.91 K/uL (0.11-0.59); Monocytes % (auto) 6.2 %; Neutrophils # (auto) 9.83 K/uL (1.4-6.5); Neutrophils % (auto) 67.4 %; Platelet Count 253 K/uL (130-400); RDW Standard Deviation 50.9 fL (36.4-46.3); Red Blood Count 3.68 M/uL (4.2-5.4)
--- NOTE | 2019-08-03 07:23 | Obstetrical Progress Note ---
Date of Service August 03, 2019 Assessment & Plan (1) delivery delivered: Doing well. Continue routine care. Encourage ambulation and deep breathing. Plan d/c tomorrow. Day #:: 1 Subjective Ambulation: ambulating normally Voiding: no voiding problems Passing Gas:: Yes Diet Tolerance:: regular diet Lochia:: Small Feeding Type:: breast feeding (pumping) Physical Exam Constitutional WD/WN, vitals as above Cardiovascular Extremities: no calf tenderness and no edema Gastrointestinal (Abdomen) soft, nt, nd ff/appro tender at u incision--c/d/i Psychiatric A+Ox3, euthymic affect Results & Data Vital Signs (Past 12 Hours) Vital Signs Temp Pulse Pulse Resp BP Pulse Ox 08/03/19 00:40 37.0 C 68 18 99/64 L 97 08/02/19 19:28 36.5 C 73 18 96/61 L 97
[2019-08-03] MEDS: SIMETHICONE 80 MG CHEW PO SCH ×4 (08:09→20:59)
[2019-08-03] MEDS: DOCUSATE SODIUM 100 MG CAP PO SCH ×2 (08:09→20:59)
[2019-08-03] MEDS: FERROUS SULFATE 325 MG TAB PO SCH (08:09)
[2019-08-03] MEDS: PRENATAL VITAMIN 1 TAB PO SCH (08:09)
[2019-08-03] MEDS: CHOLECALCIFEROL 1,000 UNITS 25 MCG TAB PO SCH (08:09)
[2019-08-03] MEDS ORDERED: bisacodyL 5 MG TABEC PO SCH (20:00)
[2019-08-04] MEDS ORDERED: bisacodyL 10 MG SUPP PR PRN (00:20)
[2019-08-04] MEDS: OXYCODONE/ACETAMINOPHEN 5mg/325mg TAB PO PRN ×4 (00:52→12:59)
[2019-08-04] MEDS: IBUPROFEN 600 MG TAB PO PRN ×4 (00:53→12:59)
[2019-08-04] MEDS: LEVOTHYROXINE SODIUM 50 MCG TABLET PO SCH (06:39)
[2019-08-04 06:42] LABS: Hematocrit (blood only) 33.5 % (37-47)
--- NOTE | 2019-08-04 07:51 | Obstetrical Progress Note ---
Date of Service August 04, 2019 Assessment & Plan (1) delivery delivered: Patient desires d/c home today. Instructions reviewed. Subjective Ambulation: ambulating normally Voiding: no voiding problems Passing Gas:: Yes Diet Tolerance:: regular diet Lochia:: Small Feeding Type:: breast feeding Physical Exam Constitutional WD/WN, vitals as above Eyes PERRL, conjunctivae normal, anicteric sclerae Neck normal visual inspection Respiratory normal respiratory effort and able to speak in complete sentences; no respiratory distress and no labored breathing Cardiovascular Rate/Rhythm: regular rate and regular rhythm Extremities: no edema Chest (Breasts) Chest: normal inspection of chest Gastrointestinal (Abdomen) Inspection/Auscultation: abdomen normal to inspection and + abdominal surgical incision (c/d/i +steristrips) Soft, postgravid Psychiatric A+Ox3, euthymic affect Genitourinary OB Exam Abdomen: + fundal height Fundus: + firm and + relation to umbilicus (fundus just below umbilicus); not tender Results & Data Vital Signs (Past 12 Hours) Vital Signs Temp Pulse Resp BP Pulse Ox 08/03/19 23:50 97.9 F 65 16 108/71 99
[2019-08-04] MEDS: PRENATAL VITAMIN 1 TAB PO SCH (08:30)
[2019-08-04] MEDS: DOCUSATE SODIUM 100 MG CAP PO SCH (08:30)
[2019-08-04] MEDS: FERROUS SULFATE 325 MG TAB PO SCH (08:30)
[2019-08-04] MEDS: SIMETHICONE 80 MG CHEW PO SCH (08:30)
[2019-08-04] MEDS: CHOLECALCIFEROL 1,000 UNITS 25 MCG TAB PO SCH (08:32)
--- NOTE | 2019-08-06 12:25 | Obstetrical Progress Note ---
Date of Service August 02, 2019 Results & Data Vital Signs (Past 12 Hours) Vital Signs Temp Pulse Resp BP Pulse Ox 08/02/19 06:10 18 98 08/02/19 05:45 18 100 08/02/19 04:45 18 100 08/02/19 03:30 98.4 F 73 18 116/71 98 08/02/19 02:51 64 98 08/02/19 02:47 70 113/74 08/02/19 02:46 66 99 08/02/19 02:41 67 99 08/02/19 02:37 60 112/73 08/02/19 02:36 59 L 98 08/02/19 02:31 66 98 08/02/19 02:27 98.1 F 61 15 108/70 08/02/19 02:26 59 L 98 08/02/19 02:21 61 95 08/02/19 02:17 68 109/65 08/02/19 02:16 68 100 08/02/19 02:11 57 L 99 08/02/19 02:07 58 L 112/72 08/02/19 02:06 57 L 99 08/02/19 02:01 58 L 99 08/02/19 01:57 63 16 104/67 08/02/19 01:56 64 96 08/02/19 01:51 58 L 100 08/02/19 01:47 72 110/64 08/02/19 01:46 60 89 L 08/02/19 01:41 65 100 08/02/19 01:38 66 116/57 L 08/02/19 01:36 69 90 08/02/19 01:35 69 93 08/02/19 01:31 97.5 F L 69 17 08/02/19 01:30 146 H 122/66 08/02/19 01:27 97.5 F L 18 08/02/19 01:26 68 100 08/02/19 01:21 56 L 100 08/02/19 01:20 52 L 109/63 08/02/19 01:17 17 08/02/19 01:16 65 99 08/02/19 01:11 61 99 08/02/19 01:08 69 91 08/02/19 01:07 73 16 102/60 08/02/19 01:06 72 99 08/02/19 01:03 64 91 08/02/19 01:01 59 L 100 08/02/19 00:57 76 17 107/76 08/02/19 00:56 69 93 08/02/19 00:55 65 94 08/02/19 00:51 64 100 08/02/19 00:47 75 16 108/74 08/02/19 00:46 77 97 08/02/19 00:45 80 88 L 08/02/19 00:41 71 100 08/02/19 00:40 71 91 08/02/19 00:37 80 17 97/64 L 08/02/19 00:36 89 98 08/02/19 00:31 78 98 08/02/19 00:28 97.7 F 69 22 96/59 L 08/02/19 00:27 70 83/56 L 08/02/19 00:26 69 99 08/01/19 22:26 97.7 F 16 08/01/19 22:14 88 109/72
--- NOTE | 2019-08-06 12:27 | Discharge Summary ---
Date of Service August 06, 2019 Admission HPI Per Admitting Provider POD # 2, ambuklating tolerating oral diet. Wishes home Admission Exam (Per Admitting) Constitutional WD/WN, vitals as above Respiratory normal respiratory effort, lungs clear to auscultation Cardiovascular RRR, no murmur, no edema Gastrointestinal (Abdomen) normal bowel sounds, soft, nontender, no hepatosplenomegaly Discharge Data Consultations 08/01/19 22:40 Consult Anesthesiology Stat Procedures Performed Operation Date: 08/01/19 22:45 Actual Procedures p Section in LD - J. Rufino Metcalf MD, [facility] [place] Hospital Course (1) delivery delivered: Postoperative from section patient meets discharge criteria as she is ambulating well tolerating an oral diet has minimal bleeding and no extremity pain. Discharge instructions were reviewed and prescriptions were sent to her pharmacy of choice patient advised to call with any concerns and follow-up in the office discussed Assessed by Dr. Guzmán and met criteria for discharge. Coding Level of Care Code None Diagnoses delivery delivered O82
== END 2019-08-04 13:13 | disposition home or self-care (01) | DRG 788 ==
LOC: OPB 22:03 → 4S1 22:04 → 4S2 08-02 02:50